=== PATIENT | female | born 1985 | race Asian ===

== ENCOUNTER 2019-02-01 10:40 | Emergency (ER) | payer OTHER ==
[~2019-02-01] VITALS: Ht 162.6 cm; Wt 50.0 kg
[2019-02-01 11:47] LABS: CLARITY URINE CLOUDY (CLEAR); COLOR URINE YELLOW (YELLOW); KETONES URINE 3+ (NEGATIVE); LEUKOCYTE ESTERASE URINE 3+ (NEGATIVE); NITRITE URINE NEGATIVE (NEGATIVE); OCCULT BLOOD URINE NEGATIVE (NEGATIVE); PH URINE 7.5 (4.5-8.0); PROTEIN URINE NEGATIVE (NEGATIVE); SPECIFIC GRAVITY URINE 1.014 (1.005-1.030)
[2019-02-01 11:50] LABS: BASOPHILS % 0.5 % (0.0-2.0); EOSINOPHILS % 1.2 % (0.0-5.0); HEMATOCRIT. 37.2 % (36.0-48.0); HEMOGLOBIN. 12.6 g/dL (12.0-16.0); LYMPHOCYTES % 25.1 % (20.0-50.0); MEAN CORPUSCULAR HEMOGLOBIN 31.1 pg (28.0-32.0); MEAN CORPUSCULAR VOLUME 91.9 fL (81.0-99.0); MEAN PLATELET VOLUME 8.3 fl (7.4-10.4); MONOCYTES % 6.6 % (2.0-8.0); NEUTROPHILS % 66.6 % (40.0-76.0); PLATELET 226 x1000/uL (130-400); RED BLOOD CELL COUNT 4.05 mill/uL (4.2-5.4); RED CELL DISTRIBUTION WIDTH 13.5 % (11.6-14.6)
[2019-02-01 11:54] LABS: PROTHROMBIN TIME 10.5 sec (9.6-11.0)
[2019-02-01 11:55] LABS: CHLORIDE 106 mEq/L (98-107)
[2019-02-01 11:57] LABS: HCG SCREEN NEGATIVE
[2019-02-01] MEDS: ONDANSETRON HCL 4MG/2ML INJ IV ONE (12:00)
[2019-02-01] MEDS: MECLIZINE 25MG TABLET PO ONE (12:00)
[2019-02-01] MEDS: SODIUM CHLORIDE 0.9% 1,000 ML IV ONE (14:51)
[2019-02-01 15:00] VITALS: BP 121/61
== END 2019-02-01 15:40 | disposition home or self-care (01) ==
LOC: ER 12:07
DX: R42 Dizziness and giddiness (principal); N39.0 Urinary tract infection, site not specified
CPT/HCPCS: 36415; 70450; 80053; 81003; 81025; 84703; 85025; 85610; 87086; 96361; 96374; 99284; J2405; J8597